=== PATIENT | male | born 1990 | race Caucasian/White ===

== ENCOUNTER 2018-04-19 14:38 | Emergency (ER) | END 2018-04-19 18:32 | disposition home or self-care (01) ==

== ENCOUNTER 2018-11-18 03:58 | Emergency (ER) | payer SELFPAY ==
[~2018-11-18] VITALS: Ht 165.1 cm; Wt 88.6 kg
[2018-11-18 04:01] VITALS: BP 114/71; PULSE 115; RESP 18; Ht 165.1 cm; Wt 88.6 kg
--- NOTE | 2018-11-18 05:51 | ERD ---
ER Documentation Chief Complaint Chief Complaint tingling sensation left arm x 20 min. denies cp. recent cocaine use HPI 28-year-old male presents with complaint of numbness and tingling sensation to the left arm x20 minutes prior to arrival. Patient notes recent cocaine use with alcohol hours prior to arrival and believes symptoms may be due to anxiety and/or panic from cocaine and alcohol use. Patient states while in the ED symptoms have since resolved and denies any complaints at this time. Patient denies chest pain or shortness of breath. Admits to previous cocaine use. Patient denies any chronic medical conditions patient states to be otherwise healthy. ROS All systems reviewed and are negative except as per history of present illness. Medications Home Meds No Active Prescriptions or Reported Meds Allergies Allergies: Coded Allergies: No Known Allergy (Unverified , 04/19/18) PMhx/Soc History of Surgery: No Anesthesia Reaction: No Hx Neurological Disorder: No Hx Respiratory Disorders: No Hx Cardiac Disorders: No Hx Psychiatric Problems: No Hx Miscellaneous Medical Probl: No Hx Alcohol Use: Yes Hx Substance Use: Yes (Cocaine) Hx Tobacco Use: No Smoking Status: Never smoker Physical Exam Vitals Vital Signs Date Temp Pulse Resp B/P (MAP) Pulse Ox O2 O2 Flow FiO2 Time Delivery Rate 11/18/18 99.1 115 18 114/71 98 04:01 (85) Physical Exam Const: No acute distress Head: Atraumatic Eyes: Normal Conjunctiva. PERRL, EOMI. ENT: Normal External Ears, Nose and Mouth. Neck: Full range of motion. No meningismus. Resp: Clear to auscultation bilaterally Cardio: Regular rate and rhythm, no murmurs. No chest wall tenderness. Abd: Soft, non tender, non distended. Skin: No petechiae or rashes Back: No midline or flank tenderness Ext: No cyanosis, or edema Neur: Alert, Oriented x3, speech normal, CN II-XII grossly intact, strength 5/5 throughout, sensation intact to light touch and two point discrimination, DTRs 2+ and symmetric, pronator drift negative, heel to ravi normal, finger to nose normal, gait normal Psych: Normal Mood and Affect Procedures/MDM PROCEDURE: Single view chest. CLINICAL INDICATION: Palpitations COMPARISON: DR SALGADO 04/19/2018 FINDINGS: There is no airspace consolidation or focal infiltrate. No pleural effusion or pneumothorax. Cardiac silhouette and mediastinal contours are unremarkable. Pulmonary vasculature appears normal. Regional bones are grossly unremarkable. IMPRESSION: No evidence of active cardiopulmonary disease. MDM: This is a 28yo M who presents to the ED for the evaluation of Left arm tingling s/p cocaine and etoh use prior to arrival. Upon arrival pt notes symptoms had resolved. Physical exam unremarkable. EKG reviewed by Dr. Natalie REID, Normal EKG with no evidence ST depression or elevation. CXR also negative for acute cardiopulmonary abnormality. Pt counseled extensively regarding drug and alcohol abuse. Given unremarkable exam, no focal neurologic deficits, stable vitals and unremarkable EKG and CXR pt deemed stable for discharge at this time. Pt counseled regarding ED return precautions. Pt expressed verbal understanding and agreement to plan. All questions addressed and answered. Departure Diagnosis: Primary Impression: Tingling of skin Additional Impressions: Drug abuse Anxiety Condition: Stable Patient Instructions: Your Body's Response to Anxiety, Cocaine: Understanding Its Effects, Drug Abuse Additional Instructions: Please return to the emergency department for any new or worsening symptoms. ADAN ARAUZ PA-C Nov 18, 2018 05:51
== END 2018-11-18 06:03 | disposition home or self-care (01) ==
LOC: FTE 03:58
DX: R20.2 Paresthesia of skin (principal); F41.9 Anxiety disorder, unspecified; F14.10 Cocaine abuse, uncomplicated; R00.2 Palpitations
CPT/HCPCS: 71045; 93005

== ENCOUNTER 2019-03-20 23:32 | Emergency (ER) | payer SELFPAY ==
[~2019-03-20] VITALS: Ht 165.1 cm; Wt 86.4 kg
[2019-03-20 23:56] VITALS: BP 118/82; PULSE 108; RESP 16; Ht 165.1 cm; Wt 86.4 kg
== END 2019-03-21 01:04 | disposition left against medical advice (07) ==
LOC: E/R 23:32
DX: Z53.21 Procedure and treatment not carried out due to patient leaving prior to being seen by health care provider (principal)